=== PATIENT | male | born 1985 | race African-American/Black ===

== ENCOUNTER 2016-12-21 23:56 | Emergency (ER) | payer OTHER ==
--- NOTE | ~2016-12-21 | EKG ---
PATIENT: LEONIDES YUAN UNIT #: [id number] Ventricular Rate: 81 BPM Atrial Rate: 81 BPM P-R Interval: 176 ms QRS Duration: 102 ms Q-T Interval: 356 ms QTC Calculation(Bezet): 413 ms P [place]: 33 degrees Calculated R [place]: 22 degrees Calculated T [place]: 26 degrees Diagnosis Line: Normal sinus rhythm Diagnosis Line: Normal ECG Diagnosis Line: No previous ECGs available Diagnosis Line: Confirmed by AJ RIOS MD ([id number]) on 12/25/2016 Diagnosis Line: 9:33:53 AM INTERPRETING MD: GABRIEL MCDONALD
--- NOTE | ~2016-12-21 | CR63 ---
[facility]. [facility] A Service of [facility] & [facility] RADIOLOGY TEXT RESULTS PATIENT: LEONIDES YUAN LOCATION: SED : 83 UNIT #: [id number] AGE: [address]: Julio Mars MD SEX: M ORDER DR: [id number] [address] [address] [id number] E MR#: [id number] Acc #: [id number] NAME: LEONIDES YUAN : 1985 SEX: M STUDY DATE/TIME: 12/21/2016 23:45 UNIT: SED ROOM: STUDY DESCRIPTION: CR Chest 2 View Attending Physician: Julio Mars M.D. Ordering Physician: Julio Mars M.D. Primary Care Physician: No Primary Care Physician MEDICAL IMAGING REPORT This report is preliminary unless electronic signature is present. EXAM 2-view chest HISTORY Chronic chest pain cough times 72 hours, former smoker. FINDINGS 2 views of the chest demonstrate low lung volumes. Right basilar atelectasis. No effusions or infiltrates. Heart, mediastinum unremarkable. No pneumothorax. Osseous structures unremarkable. IMPRESSION Low lung volumes with a small amount of right basilar atelectasis. Dictated by... Bettye Healy M.D. THIS IS AN ELECTRONICALLY VERIFIED REPORT Bettye Healy M.D. at 12/22/2016 5:56 AM AGUEDA/nora TD: 12/22/2016 02:27 JOB #: [id number] MEDICAL IMAGING REPORT Page 1 of 1
[~2016-12-21 23:56] MED LIST: DOXYCYCLINE150 MG PO; ERYTHROMYCIN O3.5 G1 OD; IBUPROFEN800 MG PO; LORTAB 5/500 TA1 TA1 PO; NAPROSYN500 MG PO; NO MEDICATIONS; NORFLEX100 M1 PO; TYLENOL #3 PO; ULTRAM PO; ZANTAC
[2016-12-22 00:03] LABS: BASOPHIL# 0.1 X10e3 (0-0.3); BASOPHIL% 0.8 % (0-2.5); EOSINOPHIL# 0.1 X10e3 (0-0.7); EOSINOPHIL% 1.2 % (0.0-7.0); HEMATOCRIT 42.5 % (38.0-50.0); HEMOGLOBIN 14.4 gm/dL (13.0-16.0); LYMPHOCYTE# 2.4 X10e3 (1.0-3.5); LYMPHOCYTE% 31.8 % (17.0-45.0); MEAN CORPUSCULAR HEMOGLOBIN 30.6 PG (28-34); MEAN PLATELET VOLUME 8.8 FL (6.5-11.5); MONOCYTE# 0.7 X10e3 (0-1.0); MONOCYTE% 9.1 % (3.0-12.0); NEUTROPHIL# 4.4 X10e3 (1.5-7.1); NEUTROPHIL% 57.1 % (40-75); PLATELET COUNT 176 X10e3 (140-420); RED BLOOD COUNT 4.72 X10e (3.90-5.60); RED CELL DISTRIBUTION WIDTH 13.4 % (11.0-15.5); WHITE BLOOD COUNT 7.7 X10e3 (4.0-10.5)
[2016-12-22 00:04] LABS: DIFF IND NO
[2016-12-22 00:16] LABS: INR 1.2
[2016-12-22 00:21] LABS: POC - TROPONIN <0.05 ng/mL (<=0.05)
[2016-12-22 00:21] LABS: BUN/CREATININE RATIO 16.66; CALCIUM SERUM 9.3 mg/dL (8.4-10.2); CREATININE SERUM 0.9 mg/dL (0.6-1.4); GLOM FILT RATE Estimated 130.5 mL/min (>60); POTASSIUM 3.4 mmol/L (3.5-5.1)
[2016-12-22 00:31] LABS: DDIMER <200 NG/ML (0-200)
== END 2016-12-22 00:57 | disposition home or self-care (01) ==
LOC: SED 23:56
PROVIDERS: Emergency Medicine
DX: S29.012A Strain of muscle and tendon of back wall of thorax, initial encounter (principal); R07.89 Other chest pain; X58.XXXA Exposure to other specified factors, initial encounter
CPT/HCPCS: 36415; 71020; 80048; 82553; 84484; 85025; 85379; 85610; 85730; 93005; 96374; 99284; J1885